=== PATIENT | female | born 1940 | race Two or more races ===

== ENCOUNTER 2020-08-04 22:03 | Inpatient (IN) | payer MEDICARE, BC ==
[~2020-08-04] VITALS: Ht 152.4 cm; Wt 40.8 kg
--- NOTE | 2020-08-04 22:16 | NUR ---
KELSY FROM HOME FOR C/O INTERMITTENT ABD PAIN FOR THE PAST TWO DAYS. + NAUSEA, - VOMITING OR DIARRHEA. PT REPORTED LAST BM 4 DAYS AGO WITH HX OF SBO. PT WAS ASSISTED TO BED 10 . WAS PLACED ON A MONITOR , VSS. AFEBRILE. WILL CONT TO MONITOR,
--- NOTE | 2020-08-04 22:25 | NUR ---
IV INITIATED LAC 18G. LABS DRAWN FROM SITE. EYE SURGEON AT BEDSIDE FOR COLLECTION. IV INTACT AND PATENT, PLACED ON SALINE LOCK
[2020-08-04] MEDS ORDERED: DICYCLOMINE HCL INJ 20 MG/2 ML AMPUL IM ONE ×2 (22:29→22:30)
[2020-08-04] MEDS ORDERED: IV NS 0.9% 500 ML BAG IV ONE (22:30)
[2020-08-04 22:35] LABS: BASOPHILS # (AUTO) 0.1 /CMM (0.0-0.2); BASOPHILS % (AUTO) 1.5 % (0.0-2.0); HEMATOCRIT 39 % (33-45); HEMOGLOBIN 12.8 g/dL (11.5-14.8); LYMPHOCYTES # (AUTO) 1.4 /CMM (0.8-4.8); LYMPHOCYTES % (AUTO) 16.9 % (20.0-44.0); MEAN CORPUSCULAR HGB CONC 33 g/dl (31.0-36.0); MEAN CORPUSCULAR VOLUME 91 fL (82-100); MONOCYTES # (AUTO) 0.6 /CMM (0.1-1.30); MONOCYTES % (AUTO) 7.7 % (2.0-12.0); NEUTROPHILS # (AUTO) 5.9 /CMM (1.8-8.9); NEUTROPHILS % (AUTO) 71.9 % (43.0-81.0); PLATELET COUNT (AUTO) 262 /CMM (150-450); RED BLOOD CELL COUNT(AUTO) 4.24 MIL/uL (4.0-5.2); WHITE BLOOD COUNT (AUTO) 8.2 K/uL (4.3-11.0)
--- NOTE | 2020-08-04 22:38 | NUR ---
BROUGHT BY RADIOLOGY TO CT
[2020-08-04 22:43] LABS: CALCIUM, SERUM 9.4 mg/dL (8.5-10.1); CARBON DIOXIDE 25 mmol/L (21-32); CHLORIDE 93 mmol/L (98-107); CREATININE 0.9 mg/dL (0.6-1.3); GLUCOSE 82 mg/dL (74-106); POTASSIUM 3.9 mmol/L (3.5-5.1); SODIUM SERUM 132 mmol/L (136-145); UREA NITROGEN, BLOOD 15 mg/dL (7-18)
[2020-08-04 22:49] LABS: ALANINE AMINOTRANSFERASE 22 U/L (12-78); ALBUMIN 3.5 g/dL (3.4-5.0); ALKALINE PHOSPHATASE 140 U/L (46-116); ASPARTATE AMINOTRANSFERASE 32 U/L (15-37); BILIRUBIN,DIRECT 0.3 mg/dL (0.0-0.2); BILIRUBIN,TOTAL 0.6 mg/dL (0.2-1.0); LIPASE 127 U/L (73-393); TOTAL PROTEIN, SERUM 7.6 g/dL (6.4-8.2)
--- NOTE | 2020-08-04 23:08 | NUR ---
URINE COLLECTED, CALLED LAB FOR PAINT FORMULATOR
--- NOTE | 2020-08-04 23:23 | NUR ---
COVID SWAB COLLECTED AND SENT TO LAB
[2020-08-04 23:24] LABS: BILIRUBIN,URINE NEGATIVE (NEGATIVE); BLOOD, URINE NEGATIVE Ery/uL (NEGATIVE); COLOR,URINE YELLOW (YELLOW); LEUKOCYTE ESTERASE ,URINE TRACE (NEGATIVE); NITRITE, URINE NEGATIVE (NEGATIVE); PROTEIN,URINE NEGATIVE (NEGATIVE); UGLUCOSE NEGATIVE (NEGATIVE); UROBILINOGEN,URINE 0.2 EU/dL (0.2)
--- NOTE | 2020-08-04 23:30 | NUR ---
PT REFUSED NG TUBE. MD AWARE
[2020-08-04 23:31] LABS: RBC,URINE 0-2 /HPF (0-2)
[2020-08-04 23:32] LABS: BACTERIA,URINE Few /HPF (None Seen); HYALINE CASTS, URINE Few /LPF (None Seen); SQUAMOUS EPITHELIAL CELL,UR Moderate /HPF (None Seen); YEAST,URINE Few /HPF (None Seen)
[2020-08-05] MEDS ORDERED: ONDANSETRON HCL/PF 4 MG/2 ML VIAL IVP PRN
[2020-08-05] MEDS ORDERED: Z GUARD REMEDY 2 OZ OINT TP PRN
[2020-08-05] MEDS ORDERED: MAGNESIUM HYDROXIDE 30 ML UDC PO PRN
[2020-08-05] MEDS ORDERED: MAG HYDROX/AL HYDROX/SIMETH 30 ML UDC PO PRN
[2020-08-05] MEDS ORDERED: ACETAMINOPHEN 325 MG TABLET PO PRN
[2020-08-05] MEDS ORDERED: MORPHINE SULFATE INJ 2 MG/ML DISP.SYRIN IV PRN
[2020-08-05] MEDS ORDERED: IV D5/0.45 NACL 1,000 ML IV ONE
[2020-08-05] MEDS ORDERED: ZOLPIDEM TARTRATE 5 MG TABLET PO PRN
--- NOTE | 2020-08-05 00:11 | NUR ---
PT STILL C/O ABDOMINAL PAIN, MD AWARE
[2020-08-05] MEDS ORDERED: MORPHINE SULFATE INJ 4 MG/ML DISP.SYRIN ONE (00:14)
[2020-08-05] MEDS ORDERED: MORPHINE SULFATE INJ 2 MG/ML DISP.SYRIN IV ONE (00:30)
--- NOTE | 2020-08-05 00:35 | NUR ---
REPORT GIVEN TO SARA ALBERTO FOR BHANU
[2020-08-05 00:45] VITALS: BP 126/62
--- NOTE | 2020-08-05 00:45 | NUR ---
RN NOTE PT ARRIVED TO THE UNIT VIA GURNEY, PT IS A/A/O X4 ,PT IS ON RA SATING 97%, PT HAS UNLABORED BREATHING, SAFETY MEASURES IN PLACE.
--- NOTE | 2020-08-05 00:47 | NUR ---
PT TRANSFERRED TO [facility] 311-2 VIA GURNEY IN STABLE CONDITION
[2020-08-05 01:00] VITALS: BP 126/62
[2020-08-05] MEDS: HYDROCODONE/APAP 5/325MG TABLET PO PRN ×2 (02:18→22:46)
[2020-08-05 06:59] LABS: CALCIUM, SERUM 8.5 mg/dL (8.5-10.1); CREATININE 0.7 mg/dL (0.6-1.3); MAGNESIUM 1.7 mg/dL (1.8-2.4); PHOSPHORUS 3.6 mg/dL (2.5-4.9); POTASSIUM 2.9 mmol/L (3.5-5.1); THYROID STIMULATING HORMONE 3.396 uIU/mL (0.358-3.74)
[2020-08-05 07:04] LABS: BASOPHILS # (AUTO) 0.1 /CMM (0.0-0.2); BASOPHILS % (AUTO) 0.9 % (0.0-2.0); EOSINOPHILS % (AUTO) 2.3 % (0.0-6.0); HEMATOCRIT 34 % (33-45); HEMOGLOBIN 11.2 g/dL (11.5-14.8); LYMPHOCYTES # (AUTO) 1.1 /CMM (0.8-4.8); LYMPHOCYTES % (AUTO) 18.4 % (20.0-44.0); MEAN CORPUSCULAR HGB CONC 33 g/dl (31.0-36.0); MEAN CORPUSCULAR VOLUME 92 fL (82-100); MONOCYTES # (AUTO) 0.6 /CMM (0.1-1.30); MONOCYTES % (AUTO) 9.4 % (2.0-12.0); NEUTROPHILS # (AUTO) 4.1 /CMM (1.8-8.9); PLATELET COUNT (AUTO) 210 /CMM (150-450); RED BLOOD CELL COUNT(AUTO) 3.66 MIL/uL (4.0-5.2); WHITE BLOOD COUNT (AUTO) 5.9 K/uL (4.3-11.0)
--- NOTE | 2020-08-05 07:30 | NUR ---
RN NOTE PT STAYED STABLE DURING MY SHIFT, REPORT GIVEN TO INCOMING SHIFT FOR BHANU.
--- NOTE | 2020-08-05 07:54 | NUR ---
MS SARA OPEN NOTES PATIENT IS A/O X 4 WITH NO SIGNS OF DISTRESS IN ROOM AIR. NO COMPLAIN OF PAIN AT THIS MOMENT. IV L AC #18G. RUNNING D5 1/2 NS AT 100 ML/HR. NPO EXCEPT MEDS FOR NOW. SAFETY MEASURES ARE APPLIED. BED IS IN LOWEST LOCKED POSITION WITH SIDE RAILS UP X 2 FOR SAFETY. CALL LIGHT IS WITHIN REACH. WILL CONTINUE TO MONITOR.
[2020-08-05 08:00] VITALS: BP 125/56
[2020-08-05] MEDS ORDERED: POTA10TA10 PO (08:40)
[2020-08-05] MEDS ORDERED: TRAZ-252 PO (08:40)
[2020-08-05] MEDS ORDERED: BRIN8DRO EACHEYE (08:40)
[2020-08-05] MEDS ORDERED: LATA2.5D15 EACHEYE (08:40)
[2020-08-05] MEDS ORDERED: VILA20TA PO (08:40)
[2020-08-05] MEDS ORDERED: LIPA1CAP15 PO (08:40)
[2020-08-05] MEDS ORDERED: TORS100T15 PO (08:40)
[2020-08-05] MEDS ORDERED: ONDA-97 PO (08:40)
[2020-08-05] MEDS ORDERED: SILD20TA2 PO (08:40)
[2020-08-05] MEDS ORDERED: ROSU10TA29 PO (08:40)
[2020-08-05] MEDS ORDERED: SPIR25TA6 PO (08:40)
[2020-08-05] MEDS ORDERED: CITA40TA11 PO (08:40)
[2020-08-05] MEDS: CEPHALEXIN MONOHYDRATE 500 MG CAPSULE PO SCH ×3 (09:00→17:00)
[2020-08-05] MEDS ORDERED: Magnesium 1GM/D5W 100ML PREMIX 100 ML IV SCH (09:00)
[2020-08-05 09:09] LABS: THYROID STIMULATING HORMONE 3.51 uIU/mL (0.358-3.74)
[2020-08-05] MEDS ORDERED: LOSA50TA39 PO (09:24)
[2020-08-05] MEDS: FLUCONAZOLE (100 MG) 100 MG TABLET PO SCH (09:24)
[2020-08-05] MEDS ORDERED: OMEP40CA13 PO (09:24)
[2020-08-05] MEDS ORDERED: SOTA120T PO (09:24)
[2020-08-05] MEDS ORDERED: Medication Not On Formulary EA (Ondansetron Hcl 4 MG) PO PRN (09:30)
--- NOTE | 2020-08-05 09:55 | NUR ---
WOUND CARE CONSULT: PT PRESENTS WITH WOUND BETWEEN RT4TH AND 5TH TOES, DRY SCAB TO RT LATERAL FOOT, DISCOLORATION TO LOWER LEGS AND SCAB TO LEFT LOWER LEG, PRESENT ON ADMISSION. RECOMMEND DPM CONSULT. DR SOUTH NOTIFIED OF CONSULT REQUEST. RECOMMENDATIONS MADE FOR SKIN PROTECTION. DISCUSSED WITH NURSING STAFF. MD IN AGREEMENT WITH PLAN OF CARE. Addendum: 08/05/20 at 0957 by VANIA FLOWERS WNDNU Amended: Links added.
[2020-08-05] MEDS: POTASSIUM CL. PREMIX PERIPHER. 50 ML IV SCH ×5 (10:49→16:57)
[2020-08-05] MEDS ORDERED: BARIUM SULFATE 98% 135 ML SUSP.RECON PO ONE ×2 (10:59→11:00)
[2020-08-05] MEDS: TORSEMIDE 20 MG TABLET PO SCH (11:15)
[2020-08-05] MEDS ORDERED: diphenhydrAMINE HCL 50 MG/ML VIAL IV ONE (12:00)
[2020-08-05] MEDS ORDERED: HYDROCORTISONE SOD SUCCINATE 100 MG/2 ML VIAL IV ONE (12:00)
[2020-08-05] MEDS ORDERED: METRONIDAZOLE 500MG/ NS 100ML 250 MG in PREMIX 1 EA IV SCH (12:00)
--- NOTE | 2020-08-05 12:00 | NUR ---
LEFT VIA GURNEY TO PROCEDURE SMALL BOWEL FOLLOW THROUGH EXAM.
--- NOTE | 2020-08-05 13:30 | NUR ---
PATIENT IS STILL IN EXAM WITH RADIOLOGY. CALLED PHARMACY TO SCHEDULE ANTIBIOTICS TO A LATER TIME SINCE PATIENT IS STILL NOT ON THE FLOOR.
--- NOTE | 2020-08-05 14:46 | NUR ---
PATIENT RETURNED BACK FROM RADIOLOGY VIA [facility] AT 1446.
--- NOTE | 2020-08-05 14:46 | NUR ---
PATIENT ON OBSERVATION WITH TELE AND SPO2 S/P SMALL BOWEL FOLLOW THROUGH WITH CONTRAST. TELE PACEMAKER 71'S AND SPO2 96% IN ROOM AIR. WILL CONTINUE TO MONITOR.
[2020-08-05] MEDS: VANCOMYCIN HCL 125 MG/2.5 ML ORAL.SUSP PO SCH ×2 (15:11→18:09)
[2020-08-05] MEDS: METRONIDAZOLE 500MG/ NS 100ML 500 MG in PREMIX 1 EA IV SCH ×2 (15:14→21:53)
[2020-08-05] MEDS: LIPASE/PROTEASE/AMYLASE 1 EACH CAPSULE.DR PO SCH ×2 (15:15→18:13)
[2020-08-05] MEDS: SILDENAFIL CITRATE 20 MG TABLET PO SCH ×2 (15:45→19:33)
[2020-08-05 16:00] VITALS: BP 126/59
[2020-08-05 16:42] VITALS: BP 126/59
[2020-08-05] MEDS: PANTOPRAZOLE 40 MG TABLET.DR PO SCH (16:57)
[2020-08-05] MEDS: LACTOBACILLUS RHAMNOSUS GG 1 EACH CAP.SPRINK PO SCH (16:57)
[2020-08-05] MEDS: SPIRONOLACTONE 25 MG TABLET PO SCH (16:57)
--- NOTE | 2020-08-05 17:36 | NUR ---
RN OPENING NOTES PATIENT RECEIVED RESTING IN BED A/O X 4. STABLE ON RA WITH BREATHING EVEN AND UNLABORED, NO SOB NOTED. NO SIGNS OF ACUTE DISTRESS. NO COMPLAINTS OF PAIN OR DISCOMFORT AT THE MOMENT. IV LOCATED ON R FA #22 SL. PATIENT REMAINING NPO EXCEPT MEDS, S/P SMALL BOWEL FOLLOW THROUGH. SAFETY PRECAUTIONS IN PLACE WITH BED IN LOWEST POSITION, CALL LIGHT WITHIN REACH, BREAKS ON, SIDE RAILS UP. WILL CONTINUE TO MONITOR THROUGHOUT THE NIGHT.
--- NOTE | 2020-08-05 17:46 | NUR ---
SPOKE WITH PHARMACY WAITING FOR SILDENAFIL TO BE STOCKED IN THE [facility].
[2020-08-05] MEDS: ATORVASTATIN 10 MG TABLET PO SCH (18:04)
--- NOTE | 2020-08-05 19:00 | NUR ---
SILDENAFIL WAS GIVEN LATE D/T PHARMACY RE-STOCKING MEDICATION BACK IN THE [facility].
--- NOTE | 2020-08-05 19:30 | NUR ---
MS RN CLOSED NOTES PATIENT A/O X 4 WITH NO SIGNS OF DISTRESS IN ROOM AIR. NO COMPLAIN OF PAIN AT THIS MOMENT. IV L AC #18G RUNNING D5 1/2 NS AT 100 ML/HR. PATIENT KEPT CLEAN AND DRY. ALL NEEDS, CARE, TREATMENT,AND MEDICATIONS WERE ADMINISTERED ANTICIPATED PER ORDER. SAFETY MEASURES ARE APPLIED, BED IS IN LOW POSITION SIDE RAILS UP X 2. CALL LIGHT WITHIN REACH WILL ENDORSE TO THE RESEARCH COMPUTING SPECIALIST NURSE.
[2020-08-05 20:00] VITALS: BP 138/69
--- NOTE | 2020-08-05 20:28 | NUR ---
HOME MEDS COLLECTED TO BE GIVEN TO PHARMACY
[2020-08-05] MEDS: TRAZODONE 50 MG TABLET PO SCH (21:53)
[2020-08-05] MEDS: LATANOPROST EYE DROP 0.005% 2.5 ML BOTTLE EACHEYE SCH (21:53)
--- NOTE | 2020-08-05 22:15 | NUR ---
FOLLOWED UP WITH MD SHAH FOR DVT CHEMICAL PROPHYLAXIS FOR VTE SCORE OF 3. AWAITING ORDERS.
[2020-08-06] MEDS: VANCOMYCIN HCL 125 MG/2.5 ML ORAL.SUSP PO SCH ×4 (00:09→18:00)
--- NOTE | 2020-08-06 01:27 | NUR ---
RECEIVED ORDER FOR 40 MG LOVENOX SQ DAILY FROM MD SHAH. ORDERS CARRIED OUT.
[2020-08-06] MEDS: METRONIDAZOLE 500MG/ NS 100ML 500 MG in PREMIX 1 EA IV SCH ×2 (05:29→12:53)
--- NOTE | 2020-08-06 06:42 | NUR ---
RN CLOSING NOTES PATIENT RESTING IN BED A/O X 4. STABLE ON RA WITH BREATHING EVEN AND UNLABORED, NO SOB NOTED. NO SIGNS OF ACUTE DISTRESS. NO COMPLAINTS OF PAIN OR DISCOMFORT AT THE MOMENT. IV LOCATED ON R FA #22 SL. PATIENT REMAINING NPO EXCEPT MEDS, S/P SMALL BOWEL FOLLOW THROUGH. SAFETY PRECAUTIONS IN PLACE WITH BED IN LOWEST POSITION, CALL LIGHT WITHIN REACH, BREAKS ON, SIDE RAILS UP. ALL NEEDS ATTENDED TO. WILL ENDORSE TO ONCOMING SHIFT ABOUT BHANU.
[2020-08-06 08:00] VITALS: BP 108/47
[2020-08-06] MEDS: LIPASE/PROTEASE/AMYLASE 1 EACH CAPSULE.DR PO SCH ×3 (08:00→18:00)
[2020-08-06 08:08] LABS: BASOPHILS % (AUTO) 0.3 % (0.0-2.0); HEMATOCRIT 35 % (33-45); HEMOGLOBIN 11.4 g/dL (11.5-14.8); LYMPHOCYTES # (AUTO) 0.6 /CMM (0.8-4.8); LYMPHOCYTES % (AUTO) 9.9 % (20.0-44.0); MEAN CORPUSCULAR HGB CONC 33 g/dl (31.0-36.0); MEAN CORPUSCULAR VOLUME 92 fL (82-100); MONOCYTES # (AUTO) 0.5 /CMM (0.1-1.30); MONOCYTES % (AUTO) 8.2 % (2.0-12.0); NEUTROPHILS # (AUTO) 5.2 /CMM (1.8-8.9); NEUTROPHILS % (AUTO) 81.6 % (43.0-81.0); PLATELET COUNT (AUTO) 209 /CMM (150-450); RED BLOOD CELL COUNT(AUTO) 3.77 MIL/uL (4.0-5.2); WHITE BLOOD COUNT (AUTO) 6.3 K/uL (4.3-11.0)
[2020-08-06] MEDS: POTASSIUM CHLORIDE 10 MEQ TABLET.SA PO SCH (09:00)
[2020-08-06] MEDS: LOSARTAN POTASSIUM 50 MG TABLET PO SCH (09:00)
[2020-08-06] MEDS ORDERED: Medication Not On Formulary EA (Vilazodone Hydrochloride (Viibryd) 20 MG) PO SCH (09:00)
[2020-08-06] MEDS: CITALOPRAM HYDROBROMIDE 20 MG TABLET PO SCH ×2 (09:00→16:14)
[2020-08-06] MEDS: PANTOPRAZOLE 40 MG TABLET.DR PO SCH ×2 (09:00→16:56)
[2020-08-06] MEDS: CADEXOMER IODINE 40 GM TUBE TP SCH (09:00)
[2020-08-06] MEDS: SIMBRINZA EACHEYE SCH ×2 (09:00→16:59)
[2020-08-06] MEDS: SILDENAFIL CITRATE 20 MG TABLET PO SCH ×3 (09:00→17:00)
[2020-08-06] MEDS: FLUCONAZOLE (100 MG) 100 MG TABLET PO SCH (09:00)
[2020-08-06] MEDS: CEPHALEXIN MONOHYDRATE 500 MG CAPSULE PO SCH ×2 (09:00→16:59)
[2020-08-06] MEDS: SPIRONOLACTONE 25 MG TABLET PO SCH ×2 (09:00→16:56)
[2020-08-06] MEDS: LACTOBACILLUS RHAMNOSUS GG 1 EACH CAP.SPRINK PO SCH ×2 (09:00→16:56)
[2020-08-06] MEDS: VIIBRYD 20 MG PO SCH ×2 (09:00→16:14)
[2020-08-06] MEDS: TORSEMIDE 20 MG TABLET PO SCH (09:00)
[2020-08-06] MEDS: ENOXAPARIN SODIUM 40 MG/0.4 ML DISP.SYRIN SQ SCH (10:00)
[2020-08-06] MEDS: SOTALOL HCL 80 MG TABLET PO SCH ×2 (10:00→21:00)
--- NOTE | 2020-08-06 10:19 | NUR ---
Patient refused to take am meds at this time. She wants to take it with lunch.
[2020-08-06 11:00] LABS: CALCIUM, SERUM 8.9 mg/dL (8.5-10.1); CREATININE 0.7 mg/dL (0.6-1.3); MAGNESIUM 2.1 mg/dL (1.8-2.4); PHOSPHORUS 4.3 mg/dL (2.5-4.9); POTASSIUM 2.9 mmol/L (3.5-5.1)
--- NOTE | 2020-08-06 12:30 | NUR ---
PAtient was able to eat 50% of clear liquid diet . She remains nauseated with no vomiting.
[2020-08-06] MEDS ORDERED: POTASSIUM CHLORIDE 20 MEQ TAB.PRT.SR PO ONE (15:00)
[2020-08-06 16:00] VITALS: BP 134/54
[2020-08-06] MEDS: ATORVASTATIN 10 MG TABLET PO SCH (18:00)
--- NOTE | 2020-08-06 18:22 | NUR ---
Patient refused vancomycin oral solution. Patient educated on importance of being med compliant. Still refusing .
--- NOTE | 2020-08-06 18:37 | NUR ---
Patient had no BM today.
--- NOTE | 2020-08-06 19:32 | NUR ---
PAtient resting in bed comfortably; she denies pain and nausea at this time.Will endorse to next shift for BHANU
[2020-08-06 20:00] VITALS: BP 112/45
[2020-08-06 20:58] VITALS: BP 112/45
[2020-08-06] MEDS: LATANOPROST EYE DROP 0.005% 2.5 ML BOTTLE EACHEYE SCH (21:25)
[2020-08-06] MEDS: TRAZODONE 50 MG TABLET PO SCH (21:36)
--- NOTE | 2020-08-06 21:50 | NUR ---
RN NOTES PATIENT HAD BM. STOOL SPECIMEN FOR C DIFF OBTAINED.
[2020-08-06] MEDS: HYDROCODONE/APAP 5/325MG TABLET PO PRN (23:10)
--- NOTE | 2020-08-07 06:25 | NUR ---
RN NOTES ALL NEEDS ATTENDED PATIENT RESTING IN BED A/O X 4. STABLE ON RA WITH BREATHING EVEN AND UNLABORED, NO SOB NOTED. NO SIGNS OF ACUTE DISTRESS. NO COMPLAINTS OF PAIN OR DISCOMFORT AT THE MOMENT. IV LOCATED ON R FA #22 SL. PATIENT ON CLEAR LIQUID DIET. S/P SMALL BOWEL FOLLOW THROUGH. SAFETY PRECAUTIONS IN PLACE WITH BED IN LOWEST POSITION, CALL LIGHT WITHIN REACH, BREAKS ON, SIDE RAILS UP. ALL NEEDS ATTENDED TO. WILL ENDORSE TO AM NURSE FOR CONTINUITY OF CARE.
--- NOTE | 2020-08-07 07:40 | NUR ---
MS RN OPENING NOTES BEDSIDE ENDORSEMENT DONE. PATIENT RESTING IN BED, ABLE TO BE AWAKENED. A/O X4, ABLE TO MAKE NEEDS KNOWN. BREATHING EVEN AND UNLABORED, TOLERATING ROOM AIR. IV LINE RFA #22 INTACT AND PATENT. PATIENT ON CLEAR LIQUID DIET, S/P SMALL BOWEL FOLLOW-THROUGH. SAFETY PRECAUTIONS IN PLACE: BED LOCKED AND ON LOWEST POSITION, CALL LIGHT WITHIN REACH, SIDE RAILS UP X2. WILL CONTINUE TO MONITOR.
[2020-08-07] MEDS: SOTALOL HCL 80 MG TABLET PO SCH ×2 (09:00→21:00)
[2020-08-07] MEDS: LOSARTAN POTASSIUM 50 MG TABLET PO SCH (09:00)
[2020-08-07] MEDS: SIMBRINZA EACHEYE SCH ×2 (09:00→17:35)
[2020-08-07] MEDS: SILDENAFIL CITRATE 20 MG TABLET PO SCH ×3 (09:00→17:28)
[2020-08-07] MEDS: VIIBRYD 20 MG PO SCH (09:00)
[2020-08-07] MEDS: ENOXAPARIN SODIUM 40 MG/0.4 ML DISP.SYRIN SQ SCH (10:00)
[2020-08-07 10:18] VITALS: BP 126/63
[2020-08-07] MEDS: LIPASE/PROTEASE/AMYLASE 1 EACH CAPSULE.DR PO SCH ×3 (10:29→18:19)
[2020-08-07] MEDS: LACTOBACILLUS RHAMNOSUS GG 1 EACH CAP.SPRINK PO SCH ×2 (10:32→17:28)
[2020-08-07] MEDS: POTASSIUM CHLORIDE 10 MEQ TABLET.SA PO SCH (10:32)
[2020-08-07] MEDS: SPIRONOLACTONE 25 MG TABLET PO SCH ×2 (10:33→17:28)
[2020-08-07] MEDS: PANTOPRAZOLE 40 MG TABLET.DR PO SCH ×2 (10:34→17:28)
[2020-08-07 10:35] LABS: CALCIUM, SERUM 8.9 mg/dL (8.5-10.1); CREATININE 0.7 mg/dL (0.6-1.3)
[2020-08-07] MEDS: TORSEMIDE 20 MG TABLET PO SCH (10:36)
[2020-08-07] MEDS: CADEXOMER IODINE 40 GM TUBE TP SCH (10:39)
[2020-08-07 10:43] LABS: POTASSIUM 2.6 mmol/L (3.5-5.1)
--- NOTE | 2020-08-07 10:50 | NUR ---
RN NOTES RECEIVED CALL FROM LAB RE: POTASSIUM LEVEL OF 2.6; PAGED DR. MARS FOR ORDERS.
--- NOTE | 2020-08-07 12:23 | NUR ---
RN NOTES RECEIVED CALL BACK FROM DR. MARS W/ ORDERS NOTED.
[2020-08-07] MEDS ORDERED: POTASSIUM CHLORIDE 20 MEQ TAB.PRT.SR PO ONE ×2 (12:30→12:46)
[2020-08-07 16:00] VITALS: BP 138/61
[2020-08-07] MEDS: HYDROCODONE/APAP 5/325MG TABLET PO PRN (17:17)
[2020-08-07] MEDS: ATORVASTATIN 10 MG TABLET PO SCH (18:19)
--- NOTE | 2020-08-07 19:30 | NUR ---
MS RN OPENING NOTES PATIENT IN BED RESTING COMFORTABLY, ALERT AND ORIENTED X4, ABLE TO MAKE NEEDS KNOWN. RESPIRATIONS ARE EVEN AND UNLABORED, TOLERATING ROOM AIR. IV LINE RFA #22 INTACT AND PATENT. NO C/O PAIN/DISCOMFORT AT THIS TIME. SAFETY PRECAUTIONS IN PLACE. BED LOCKED AND ON LOWEST POSITION, CALL LIGHT WITHIN REACH, SIDE RAILS UP X2. WILL CONTINUE TO MONITOR.
--- NOTE | 2020-08-07 19:37 | NUR ---
MS RN CLOSING NOTES PATIENT RESTING IN BED, ABLE TO BE AWAKENED. A/O X4, ABLE TO MAKE NEEDS KNOWN. BREATHING EVEN AND UNLABORED, TOLERATING ROOM AIR. IV LINE RFA #22 INTACT AND PATENT. PATIENT ON CLEAR LIQUID DIET, TOLERATING WELL. ABLE TO COLLECT SECOND STOOL SPECIMEN FOR C. DIFF. POTASSIUM LEVEL INCREASED TO NORMAL. MD AWARE. SAFETY PRECAUTIONS MAINTAINED: BED LOCKED AND ON LOWEST POSITION, CALL LIGHT WITHIN REACH, SIDE RAILS UP X2. ENDORSED TO COMPLIANCE TESTER RN FOR BHANU.
[2020-08-07 20:00] VITALS: BP 124/45
[2020-08-07] MEDS: LATANOPROST EYE DROP 0.005% 2.5 ML BOTTLE EACHEYE SCH (21:27)
[2020-08-07] MEDS: TRAZODONE 50 MG TABLET PO SCH (21:27)
--- NOTE | 2020-08-07 21:28 | NUR ---
MS-RN NOTES: MEDICATION REFUSAL PATIENT REFUSED BETAPACE DOSE FOR TONIGHT. EDUCATED PATIENT REGARDING MEDICATION COMPLIANCE BUT PATIENT CONTINUED TO REFUSE X3.
[2020-08-07] MEDS: LOPERAMIDE HCL (2 MG CAP) 2 MG CAPSULE PO PRN (22:26)
--- NOTE | 2020-08-07 22:26 | NUR ---
MS-RN NOTE: PATIENT HAD LOOSE BOWEL MOVEMENT X3 IN MODERATE AMOUNT. COLLECTED STOOL C-DIFF #3 AT 2000 AND SENT TO LAB. PATIENT IS REQUESTING FOR IMODIUM. DR. ZEPEDA MADE AWARE OF STOOL C-DIFF COLLECTION. OBTAINED ORDER FROM IMODIUM 2MG PO Q4HRS PRN NOTED AND CARRIED OUT. WILL CONTINUE TO MONITOR.
[2020-08-08 00:03] VITALS: BP 124/45
[2020-08-08] MEDS: HYDROCODONE/APAP 5/325MG TABLET PO PRN (04:06)
--- NOTE | 2020-08-08 04:08 | NUR ---
MS-RN NOTE: PATIENT C/O LOWER BACK PAIN ON A PAIN SCALE OF 7/10. ADMINISTERED NORCO 5/325MG PO 1 TAB ORDERED. WILL CONTINUE TO REASSESS.
[2020-08-08] MEDS: LOPERAMIDE HCL (2 MG CAP) 2 MG CAPSULE PO PRN (04:30)
--- NOTE | 2020-08-08 06:47 | NUR ---
MS RN CLOSING NOTES PATIENT IN BED ASLEEP. AROUSES EASILY. ALERT AND ORIENTED X4, ABLE TO MAKE NEEDS KNOWN. RESPIRATIONS ARE EVEN AND UNLABORED, TOLERATING ROOM AIR. IV LINE RFA #22 INTACT AND PATENT. PATIENT ON CLEAR LIQUID DIET. SAFETY PRECAUTIONS MAINTAINED. BED LOCKED AND ON LOWEST POSITION, CALL LIGHT WITHIN REACH, SIDE RAILS UP X2. ENDORSED TO DAY SHIFT NURSE FOR CONTINUITY OF CARE.
--- NOTE | 2020-08-08 07:30 | NUR ---
MS/RN OPENING NOTE Patient resting in bed, A&O x 4. Breathing even and non-labored on RA, no SOB noted. No cardiac distress noted. Denies any pain/discomfort at this time. IV access noted on RFA #22, patent and intact, and flushing well. Sensation from all peripheral extremities intact. Bed locked to its lowest position, side rails x 2 up, call light in hand. Will continue with current medical management.
[2020-08-08] MEDS: LIPASE/PROTEASE/AMYLASE 1 EACH CAPSULE.DR PO SCH (08:00)
[2020-08-08] MEDS: LACTOBACILLUS RHAMNOSUS GG 1 EACH CAP.SPRINK PO SCH (09:00)
[2020-08-08] MEDS: VIIBRYD 20 MG PO SCH (09:00)
[2020-08-08] MEDS: SIMBRINZA EACHEYE SCH (09:00)
[2020-08-08] MEDS: SPIRONOLACTONE 25 MG TABLET PO SCH (09:00)
[2020-08-08] MEDS: LOSARTAN POTASSIUM 50 MG TABLET PO SCH (09:00)
[2020-08-08] MEDS: SILDENAFIL CITRATE 20 MG TABLET PO SCH (09:00)
[2020-08-08] MEDS: POTASSIUM CHLORIDE 10 MEQ TABLET.SA PO SCH (09:00)
[2020-08-08] MEDS: SOTALOL HCL 80 MG TABLET PO SCH (09:00)
[2020-08-08] MEDS: CADEXOMER IODINE 40 GM TUBE TP SCH (09:00)
[2020-08-08] MEDS: CITALOPRAM HYDROBROMIDE 20 MG TABLET PO SCH (09:00)
[2020-08-08] MEDS: TORSEMIDE 20 MG TABLET PO SCH (09:00)
[2020-08-08] MEDS: PANTOPRAZOLE 40 MG TABLET.DR PO SCH (09:00)
--- NOTE | 2020-08-08 09:00 | NUR ---
MS/RN NOTE Patient refused morning meds, states she'd take it upon discharge at home.
--- NOTE | 2020-08-08 09:15 | NUR ---
MS/RN NOTE Patient tolerated soft diet well, will continue to monitor. No s/s of n/v noted.
[2020-08-08 09:16] LABS: BASOPHILS # (AUTO) 0.1 /CMM (0.0-0.2); BASOPHILS % (AUTO) 1.1 % (0.0-2.0); EOSINOPHILS % (AUTO) 3.7 % (0.0-6.0); HEMATOCRIT 37 % (33-45); HEMOGLOBIN 11.9 g/dL (11.5-14.8); LYMPHOCYTES # (AUTO) 1.1 /CMM (0.8-4.8); LYMPHOCYTES % (AUTO) 20.5 % (20.0-44.0); MEAN CORPUSCULAR HGB CONC 32 g/dl (31.0-36.0); MEAN CORPUSCULAR VOLUME 93 fL (82-100); MONOCYTES # (AUTO) 0.5 /CMM (0.1-1.30); MONOCYTES % (AUTO) 9.7 % (2.0-12.0); NEUTROPHILS # (AUTO) 3.6 /CMM (1.8-8.9); PLATELET COUNT (AUTO) 222 /CMM (150-450); RED BLOOD CELL COUNT(AUTO) 3.95 MIL/uL (4.0-5.2); WHITE BLOOD COUNT (AUTO) 5.5 K/uL (4.3-11.0)
[2020-08-08] MEDS: ENOXAPARIN SODIUM 40 MG/0.4 ML DISP.SYRIN SQ SCH (10:00)
--- NOTE | 2020-08-08 10:30 | NUR ---
MS/DURAL MECHANIC NOTE Patient picked up by caregiver, at 1030. All needs met and attended to. Breathing even and non-labored on RA. No respiratory or cardiac distress noted. RFA #22 removed with catheter intact, placed clean dry dressing on the site. No s/s of infiltration, infection, bleeding noted on site. Sensation from all peripheral extremities intact. No diarrhea noted throughout shift. Photos of skin impairments taken and placed on chart. Educated patient regarding discharge instructions, answered all their questions to their satisfaction. Patient and son verbalized understanding. Patient left facility @ 1030 with all belongings and hospital documents in hand.
[2020-08-08 12:02] LABS: CALCIUM, SERUM 9.6 mg/dL (8.5-10.1); CREATININE 0.6 mg/dL (0.6-1.3)
== END 2020-08-08 10:50 | disposition home or self-care (01) | DRG 389 ==
LOC: ER 22:06 → MED 08-05 00:28
PROVIDERS: ADMIT Student in an Organized Health Care Education/Training Program; ATTEND Internal Medicine
DX: K56.609 Unspecified intestinal obstruction, unspecified as to partial versus complete obstruction (principal); N39.0 Urinary tract infection, site not specified; D68.69 Other thrombophilia; E44.0 Moderate protein-calorie malnutrition; E87.1 Hypo-osmolality and hyponatremia; E78.5 Hyperlipidemia, unspecified; I48.91 Unspecified atrial fibrillation; M81.0 Age-related osteoporosis without current pathological fracture; D69.2 Other nonthrombocytopenic purpura; E83.42 Hypomagnesemia; E87.6 Hypokalemia; E86.1 Hypovolemia; I10 Essential (primary) hypertension; Z68.1 Body mass index [BMI] 19.9 or less, adult; I27.20 Pulmonary hypertension, unspecified; K56.7 Ileus, unspecified; M20.42 Other hammer toe(s) (acquired), left foot; M20.41 Other hammer toe(s) (acquired), right foot; Z20.828 Contact with and (suspected) exposure to other viral communicable diseases; Z88.2 Allergy status to sulfonamides; Z95.0 Presence of cardiac pacemaker; L89.896 Pressure-induced deep tissue damage of other site; S91.301A Unspecified open wound, right foot, initial encounter; X58.XXXA Exposure to other specified factors, initial encounter; Y93.9 Activity, unspecified; Y92.89 Other specified places as the place of occurrence of the external cause; D64.9 Anemia, unspecified; I35.1 Nonrheumatic aortic (valve) insufficiency
CPT/HCPCS: 36415; 71045-TC; 74018; 74250-TC; 80048-TC; 80061-TC; 80076-TC; 81001; 82728-TC; 83540-TC; 83690-TC; 83735-TC; 84100-TC; 84132-TC; 84439-TC; 84443-TC; 84484-TC; 85025-TC; 87081-TC; 93307-TC; A4216; C9803; G0378; J0500; J1200; J1650; J1720; J2270; J2405; J3475; J3480; J3490; J7040; J7050

== ENCOUNTER 2022-10-13 22:50 | Emergency (ER) | payer MEDICARE, BC ==
[~2022-10-13] VITALS: Ht 162.6 cm; Wt 58.1 kg
[~2022-10-13 22:50] MED LIST: BRIN8DRO2 EACHEYE; CITA40TA11 PO; LATA2.5D15 EACHEYE; LIPA1CAP15 PO; LOSA50TA39 PO; OMEP40CA21 PO; ONDA-97 PO; POTA10TA10 PO; ROSU10TA29 PO; SILD20TA2 PO; SOTA120T PO; SPIR25TA6 PO; TORS100T15 PO; TRAZ-252 PO; VILA20TA PO
--- NOTE | 2022-10-13 23:45 | NUR ---
TO ER BED 1. [id number] FROM HOME FOR MECH TRIP AND FALL +HT +LAC L SIDE OF HEAD. SKIN TEAR NOTED TO L FORARM. PT IS ALERT AND ORIENTED. RR EVEN AND NONLABORED. CONNECTED TO POX AND HEART MONITOR. FALL PRECAUTIONS IN PLACE .
[2022-10-13] MEDS ORDERED: IBUPROFEN 600 MG TABLET ONE (23:49)
[2022-10-14] MEDS ORDERED: IBUPROFEN 600 MG TABLET PO ONE
--- NOTE | 2022-10-14 00:40 | NUR ---
PT TAKEN TO CT SCAN VIA [facility]
[2022-10-14] MEDS ORDERED: LIDOCAINE 2%-EPI 1:100,000 30 ML VIAL ONE (00:56)
[2022-10-14] MEDS ORDERED: HYDROCODONE/APAP 5/325MG TABLET ONE (01:58)
[2022-10-14] MEDS ORDERED: HYDROCODONE/APAP 5/325MG TABLET PO ONE (02:00)
--- NOTE | 2022-10-14 04:44 | NUR ---
[facility] AT BEDSIDE FOR TRANSPORT BACK HOME
[2022-10-14 04:51] VITALS: BP 108/58
== END 2022-10-14 04:53 | disposition home or self-care (01) ==
LOC: ER 22:51
DX: S51.012A Laceration without foreign body of left elbow, initial encounter (principal); S93.602A Unspecified sprain of left foot, initial encounter; S00.03XA Contusion of scalp, initial encounter; I10 Essential (primary) hypertension; I27.20 Pulmonary hypertension, unspecified; E78.5 Hyperlipidemia, unspecified; Z60.2 Problems related to living alone; Z79.899 Other long term (current) drug therapy; Z91.040 Latex allergy status; Z88.2 Allergy status to sulfonamides; W01.0XXA Fall on same level from slipping, tripping and stumbling without subsequent striking against object, initial encounter; Y93.89 Activity, other specified; Y92.89 Other specified places as the place of occurrence of the external cause; Y99.8 Other external cause status
CPT/HCPCS: 99284; 72125; 12002; 73080; 73630; 70450; A6403; J3490